=== PATIENT | female | born 1960 | race American Indian/Alaskan Native ===

== ENCOUNTER 2016-10-14 11:05 | Emergency (ER) | payer OTHER ==
[2016-10-14 11:22] VITALS: BP 123/82; PULSE 87; RESP 19; TEMP 98.5; O2SAT 100; BMI 28.8
--- NOTE | 2016-10-14 14:03 | RAD ---
PROCEDURE: Radiographs of the Lumbar Spine. HISTORY: back pain COMPARISON: Lumbar spine radiographs performed 03/14/16 FINDINGS: BONES: Alignment appears satisfactory. Diffuse osseous demineralization limits evaluation for acute fracture lines. No acute displaced fracture identified. Facet hypertrophy. DISC SPACES: Unremarkable. OTHER FINDINGS: Atherosclerotic calcifications of the abdominal aorta. IMPRESSION: Diffuse osseous demineralization limits evaluation for acute fracture lines. No acute displaced fracture identified. Facet hypertrophy.
--- NOTE | 2016-10-14 14:07 | ED PDOC ---
Arrival/HPI - General Historian: Patient - General Chief Complaint: Hip Pain Time Seen by Provider: 10/14/16 11:51 - History of Present Illness Narrative History of Present Illness (Text): 10/14/16 14:04 56yo female with PMHx of hypertension present with complaint of lower back pain and right hip pain s/p trauma 2days ago. states she slipped on a wet floor and fell forward. Pain started immediately, but she came to ED today for the persistent pain. States she took Ibuprofen 800mg yesterday with some relieve. Denies hitting head anywhere, LOC, nausea, vomiting, urinary/fecal incontinence , focal weakness, any other complaint. (Gema Bright) Past Medical History - Provider Review Nursing Documentation Reviewed: Yes - Infectious Disease Hx of Infectious Diseases: None - Tetanus Immunization Tetanus Immunization: Unknown - Cardiac Hx Congestive Heart Failure: Yes Hx Hypertension: Yes - Pulmonary Hx Respiratory Disorders: No - Neurological Hx Neurological Disorder: No Hx Vertigo: Yes - HEENT Hx HEENT Disorder: Yes Other/Comment: 2013 ear infection - Renal Hx Renal Disorder: No - Endocrine/Metabolic Hx Endocrine Disorders: Yes Hx Diabetes Mellitus Type 2: Yes - Hematological/Oncological Hx Blood Disorders: Yes Hx Anemia: Yes - Integumentary Hx Dermatological Disorder: No - Musculoskeletal/Rheumatological Hx Arthritis: Yes Hx Falls: No Hx Fractures: Yes (right great toe left 5th toe) - Gastrointestinal Hx Gastrointestinal Disorders: Yes Other/Comment: constipation. removal of abdl tumor - Genitourinary/Gynecological Hx Genitourinary Disorders: No - Psychiatric Hx Psychophysiologic Disorder: No Hx Depression: No Hx Substance Use: No - Surgical History Hx Hysterectomy: Yes (2007) Hx Orthopedic Surgery: Yes (right toe fracture repair) Other/Comment: myomectomy 2007 nipple removed right breast pilondal cystectomy - Anesthesia Hx Anesthesia: Yes Hx Anesthesia Reactions: No Hx Malignant Hyperthermia: No - Suicidal Assessment Feels Threatened In Home Enviroment: No Family/Social History - Physician Review Nursing Documentation Reviewed: Yes Family/Social History: Unknown Family HX Smoking Status: Former Smoker Hx Alcohol Use: No Hx Substance Use: No Allergies/Home Meds Allergies/Adverse Reactions: Allergies No Known Allergies Allergy (Verified 10/14/16 11:24) Home Medications: Home Meds Medication Instructions Recorded Confirmed Carvedilol [Coreg] 25 mg PO BID 01/01/16 10/14/16 Enalapril Maleate 10 mg PO DAILY 01/01/16 10/14/16 Furosemide [Lasix] 40 mg PO DAILY 01/01/16 10/14/16 metFORMIN [glucOPHAGE] 500 mg PO DAILY 01/01/16 10/14/16 Review of Systems - Physician Review All systems were reviewed & negative as marked: Yes - Review of Systems Constitutional: Normal Eyes: Normal ENT: Normal Respiratory: Normal Cardiovascular: Normal Gastrointestinal: Normal Genitourinary Female: Normal Musculoskeletal: Arthralgias (Right hip pain), Back Pain Skin: Normal Neurological: Normal Endocrine: Normal Hemo/Lymphatic: Normal Psychiatric: Normal Physical Exam Vital Signs Reviewed: Yes Temperature: Afebrile Blood Pressure: Normal Pulse: Regular Respiratory Rate: Normal Appearance: Positive for: Well-Appearing, Non-Toxic, Comfortable Pain Distress: None Mental Status: Positive for: Alert and Oriented X 3 - Systems Exam Head: Present: Atraumatic, Normocephalic Pupils: Present: PERRL Extroacular Muscles: Present: EOMI Conjunctiva: Present: Normal Mouth: Present: Moist Mucous Membranes Neck: Present: Normal Range of Motion Respiratory/Chest: Present: Clear to Auscultation, Good Air Exchange. No: Respiratory Distress, Accessory Muscle Use Cardiovascular: Present: Regular Rate and Rhythm, Normal S1, S2. No: Murmurs Abdomen: Present: Normal Bowel Sounds. No: Tenderness, Distention, Peritoneal Signs Back: Present: Paraspinal Tenderness (Right paralumbar tenderness), Pain with Leg Raise (Right leg). No: Midline Tenderness Upper Extremity: Present: Normal Inspection. No: Cyanosis, Edema Lower Extremity: Present: NORMAL PULSES, Normal ROM, Tenderness (Lateral right hip), Neurovascularly Intact. No: Edema, Swelling, Erythema, Deformity, Temperature Abnormalties Neurological: Present: GCS=15, CN II-XII Intact, Speech Normal Skin: Present: Warm, Dry, Normal Color. No: Rashes Psychiatric: Present: Alert, Oriented x 3, Normal Insight, Normal Concentration Vital Signs Temp Pulse Resp BP Pulse Ox 10/14/16 11:22 98.5 F 87 19 123/82 100 Medical Decision Making ED Course and Treatment: I was available for consultation during PA evaluation. The chart reviewed by me , and I agree with disposition. The documented history was done by the physician display manager. The documented physical exam was done by the physician display manager. The documented procedures were done by the physician display manager. (Chin He) 10/14/16 20:18 Right hip/LS xray - No acute finding Result was DW the pt. she was referred to her PMD/orthopedist. Analgesic was given. TRT ED for for any new or worsening symptoms. (Gema Bright) - RAD Interpretation Radiology Orders: 10/14/16 11:51 LS SPINE WITH OBL > 18 YRS OLD [RAD] Stat 10/14/16 11:52 Hip Right [HIP MIN 2V W/ PELVIS RT] [RAD] Stat - Medication Orders Current Medication Orders: Discontinued Medications Ketorolac Tromethamine (Toradol) 60 mg IM STAT STA Stop: 10/14/16 14:00 Last Admin: 10/14/16 14:47 Dose: 60 mg Disposition/Present on Arrival - Present on Arrival Any Indicators Present on Arrival: No History of DVT/PE: No History of Uncontrolled Diabetes: No Urinary Catheter: No History of Decub. Ulcer: No History Surgical Site Infection Following: None - Disposition Have Diagnosis and Disposition been Completed?: Yes Disposition Time: 14:10 Patient Plan: Discharge - Disposition Diagnosis: Back pain, Hip pain Disposition: HOME/ ROUTINE Condition: STABLE Discharge Instructions (ExitCare): Back Pain (ED), Hip Pain (ED) Additional Instructions: Follow up with your doctor/orthopedist Return to ED for any new or worsening symptoms Prescriptions: Cyclobenzaprine [Cyclobenzaprine HCl] 10 mg PO TID #10 tab Naproxen [Naprosyn] 500 mg PO BID #20 tab Referrals: Trenton Childs MD [Primary Care Provider] - Follow up with primary Helen Valenzuela MD [Staff Provider] - Follow up with primary
--- NOTE | 2016-10-14 14:12 | RAD ---
PROCEDURE: Right Hip and pelvis Radiographs. HISTORY: hi pain s/p trauma COMPARISON: None. FINDINGS: BONES: Normal. No fracture. JOINTS: Normal. SOFT TISSUES: Normal. OTHER FINDINGS: None. IMPRESSION: Negative study
== END 2016-10-14 14:49 | disposition home or self-care (01) ==
LOC: ED 11:05
DX: M54.5 Low back pain (principal); M25.551 Pain in right hip; I10 Essential (primary) hypertension
CPT/HCPCS: 72110; 73502; 96372; 99284; J1885

== ENCOUNTER 2017-06-16 23:57 | Emergency (ER) | payer OTHER ==
[2017-06-16 23:57] VITALS: BMI 28.8
--- NOTE | 2017-06-17 01:52 | ED PDOC ---
Arrival/HPI - General Chief Complaint: Lower Extremity Problem/Injury Time Seen by Provider: 06/17/17 00:28 Historian: Patient - History of Present Illness Narrative History of Present Illness (Text): 06/17/17 01:50 56yo female with PMHx of hypertension , diabetes and hypercholestremia, who present with complaint of left ankle pain x 3days. States pain became increasingly worse. Worse with weight bearing and just touching the area. States pain is localized to the medial aspect of her left ankle, but the pain radiates to her thigh. She denies trauma, redness, calf pain, LE edema, chest pain, any other complaint. She did not take any medication for the pain. 06/17/17 01:53 Past Medical History - Provider Review Nursing Documentation Reviewed: Yes - Infectious Disease Hx of Infectious Diseases: None - Tetanus Immunization Tetanus Immunization: Unknown - Cardiac Hx Congestive Heart Failure: Yes Hx Hypertension: Yes - Pulmonary Hx Respiratory Disorders: No - Neurological Hx Neurological Disorder: No Hx Vertigo: Yes - HEENT Hx HEENT Disorder: Yes Other/Comment: 2013 ear infection - Renal Hx Renal Disorder: No - Endocrine/Metabolic Hx Endocrine Disorders: Yes Hx Diabetes Mellitus Type 2: Yes - Hematological/Oncological Hx Blood Disorders: Yes Hx Anemia: Yes - Integumentary Hx Dermatological Disorder: No - Musculoskeletal/Rheumatological Hx Arthritis: Yes Hx Falls: No Hx Fractures: Yes (right great toe left 5th toe) - Gastrointestinal Hx Gastrointestinal Disorders: Yes Other/Comment: constipation. removal of abdl tumor - Genitourinary/Gynecological Hx Genitourinary Disorders: No - Psychiatric Hx Psychophysiologic Disorder: No Hx Depression: No Hx Substance Use: No - Surgical History Hx Hysterectomy: Yes (2007) Hx Orthopedic Surgery: Yes (right toe fracture repair) Other/Comment: myomectomy 2007 nipple removed right breast pilondal cystectomy - Anesthesia Hx Anesthesia: Yes Hx Anesthesia Reactions: No Hx Malignant Hyperthermia: No - Suicidal Assessment Feels Threatened In Home Enviroment: No Family/Social History - Physician Review Nursing Documentation Reviewed: Yes Family/Social History: Unknown Family HX Smoking Status: Former Smoker Hx Alcohol Use: No Hx Substance Use: No Allergies/Home Meds Allergies/Adverse Reactions: Allergies No Known Allergies Allergy (Verified 10/14/16 11:24) Home Medications: Home Meds Medication Instructions Recorded Confirmed Carvedilol [Coreg] 25 mg PO BID 01/01/16 06/17/17 Enalapril Maleate 10 mg PO DAILY 01/01/16 06/17/17 Furosemide [Lasix] 40 mg PO DAILY 01/01/16 06/17/17 metFORMIN [glucOPHAGE] 500 mg PO DAILY 01/01/16 06/17/17 Review of Systems - Physician Review All systems were reviewed & negative as marked: Yes - Review of Systems Constitutional: Normal Eyes: Normal ENT: Normal Respiratory: Normal Cardiovascular: Normal Gastrointestinal: Normal Genitourinary Female: Normal Musculoskeletal: Arthralgias (LEft ankle pain) Skin: Normal Neurological: Normal Endocrine: Normal Hemo/Lymphatic: Normal Psychiatric: Normal Physical Exam Vital Signs Reviewed: Yes Vital Signs Temp Pulse Resp BP Pulse Ox 06/17/17 02:26 98.0 F 82 17 142/97 H 98 06/17/17 02:14 98.0 F 82 17 142/97 H 98 Temperature: Afebrile Blood Pressure: Normal Pulse: Regular Respiratory Rate: Normal Appearance: Positive for: Well-Appearing, Non-Toxic, Comfortable Pain Distress: None Mental Status: Positive for: Alert and Oriented X 3 - Systems Exam Head: Present: Atraumatic, Normocephalic Pupils: Present: PERRL Extroacular Muscles: Present: EOMI Conjunctiva: Present: Normal Mouth: Present: Moist Mucous Membranes Neck: Present: Normal Range of Motion Respiratory/Chest: Present: Clear to Auscultation, Good Air Exchange. No: Respiratory Distress, Accessory Muscle Use Cardiovascular: Present: Regular Rate and Rhythm, Normal S1, S2. No: Murmurs Abdomen: Present: Normal Bowel Sounds. No: Tenderness, Distention, Peritoneal Signs Back: Present: Normal Inspection Upper Extremity: Present: Normal Inspection. No: Cyanosis, Edema Lower Extremity: Present: NORMAL PULSES, Normal ROM, Tenderness (Medial left ankle), Swelling (Mild swelling over the medial left ankle), Neurovascularly Intact. No: Edema, CALF TENDERNESS, Erythema, Temperature Abnormalties Neurological: Present: GCS=15, CN II-XII Intact, Speech Normal Skin: Present: Warm, Dry, Normal Color. No: Rashes Psychiatric: Present: Alert, Oriented x 3, Normal Insight, Normal Concentration Medical Decision Making ED Course and Treatment: 06/17/17 01:54 PT presented for stated history. Uric acid was 8.1. Pt's pain was controlled in ED with medication. Result was DW the pt. PT will be DC home with colchicine and percocet. Advised to f/u with her PMD. - Lab Interpretations Lab Results: Lab Results 06/17/17 00:45: Uric Acid 8.1 H - RAD Interpretation Radiology Orders: 06/17/17 00:50 ANKLE LEFT 3 VIEWS ROUTINE [RAD] Stat - Medication Orders Current Medication Orders: Discontinued Medications Dexamethasone (Decadron Inj) 10 mg IM STAT STA Stop: 06/17/17 01:41 Last Admin: 06/17/17 02:12 Dose: 10 mg IM Administration Charges Document 06/17/17 02:12 IT (Rec: 06/17/17 02:12 IT [id number]) Injection Site MAR Injection Site Right Deltoid Charges for Administration # of IM Administrations 1 Ketorolac Tromethamine (Toradol) 60 mg IM STAT STA Stop: 06/17/17 00:52 Last Admin: 06/17/17 01:31 Dose: 60 mg MAR Pain Assessment Document 06/17/17 01:31 IT (Rec: 06/17/17 01:31 IT [id number]) Pain Reassessment Is this a pain reassessment? No Sleep Is patient sleeping during reassessment? No Presence of Pain Presence of Pain Yes Pain Scale Used Pain Scale Used Numeric Location Left, Right or Bilateral Left Pain Location Body Site Ankle Foot IM Administration Charges Document 06/17/17 01:31 IT (Rec: 06/17/17 01:31 IT [id number]) Injection Site MAR Injection Site Left Deltoid Charges for Administration # of IM Administrations 1 Disposition/Present on Arrival - Present on Arrival Any Indicators Present on Arrival: No History of DVT/PE: No History of Uncontrolled Diabetes: No Urinary Catheter: No History of Decub. Ulcer: No History Surgical Site Infection Following: None - Disposition Have Diagnosis and Disposition been Completed?: Yes Diagnosis: Gout attack Disposition: HOME/ ROUTINE Disposition Time: 02:05 Patient Plan: Discharge Condition: STABLE Discharge Instructions (ExitCare): Gout (ED) Additional Instructions: Follow up with your Doctor Return to ED for any new or worsening symptoms Prescriptions: Colchicine 0.6 mg PO BID #10 cap oxyCODONE/Acetaminophen [Percocet 5/325 mg Tab] 1 ea PO Q6 #8 tab Referrals: [facility] at [facility] [place] [Outside] - Follow up with primary Forms: [employer] (Turkish)
[2017-06-17 02:24] VITALS: BP 142/97; PULSE 82; RESP 17; TEMP 98; O2SAT 98
--- NOTE | 2017-06-17 08:21 | RAD ---
PROCEDURE: Left Ankle Radiographs. HISTORY: ankle pain COMPARISON: None FINDINGS: BONES: Tiny ossific density adjacent to the tip of the medial malleolus may represent small avulsion injury of indeterminate age. No other fracture identified. JOINTS: Normal. No osteoarthritis. Ankle mortise maintained. Talar dome intact SOFT TISSUES: Medial soft tissue swelling. OTHER FINDINGS: None. IMPRESSION: Possible medial malleolar avulsion fracture. No additional abnormality.
== END 2017-06-17 02:37 | disposition home or self-care (01) ==
LOC: ED 23:57
DX: M10.9 Gout, unspecified (principal); I10 Essential (primary) hypertension; Z87.891 Personal history of nicotine dependence
CPT/HCPCS: 73610; 84550; 96372; 99283; J1100; J1885

== ENCOUNTER 2017-12-11 23:44 | Emergency (ER) | payer OTHER ==
[2017-12-12 00:06] VITALS: RESP 18; TEMP 97.9; BMI 28.3
--- NOTE | 2017-12-12 00:30 | ED PDOC ---
Arrival/HPI - General Chief Complaint: Trauma Time Seen by Provider: 12/12/17 00:29 Historian: Patient - History of Present Illness Narrative History of Present Illness (Text): 12/12/17 00:29 57 year old female, whose past medical history includes hypertension, pre- diabetes, hypercholestremia, and CHF, presents to the emergency department complaining of right big toe pain and ankle pain that radiates up to the lower leg s/p mechanical fall 4 days ago. Patient states she slipped due to a puddle of water indoors and fell down landing on her side. Patient is able to bear weight on her right leg. Patient reports body aches, but denies any chest pain , shortness of breath, nausea, vomiting, back pain, neck pain, hip pain, headache, dizziness, or any other complaints. Time/Duration: Other (4 days) Symptom Onset: Gradual Symptom Course: Unchanged Activities at Onset: Light Context: Slipped Past Medical History - Provider Review Nursing Documentation Reviewed: Yes - Infectious Disease Hx of Infectious Diseases: None - Tetanus Immunization Tetanus Immunization: Unknown - Cardiac Hx Cardiac Disorders: Yes Hx Congestive Heart Failure: Yes Hx Hypertension: Yes - Pulmonary Hx Respiratory Disorders: No - Neurological Hx Neurological Disorder: Yes Hx Vertigo: Yes - HEENT Hx HEENT Disorder: Yes Other/Comment: 2013 ear infection - Renal Hx Renal Disorder: No - Endocrine/Metabolic Hx Endocrine Disorders: Yes Hx Diabetes Mellitus Type 2: Yes - Hematological/Oncological Hx Blood Disorders: Yes Hx Anemia: Yes - Integumentary Hx Dermatological Disorder: No - Musculoskeletal/Rheumatological Hx Musculoskeletal Disorders: Yes Hx Arthritis: Yes Hx Falls: No Hx Fractures: Yes (right great toe left 5th toe) - Gastrointestinal Hx Gastrointestinal Disorders: Yes Other/Comment: constipation. removal of abdl tumor - Genitourinary/Gynecological Hx Genitourinary Disorders: No - Psychiatric Hx Psychophysiologic Disorder: No Hx Depression: No Hx Substance Use: No - Surgical History Hx Hysterectomy: Yes (2008) Hx Orthopedic Surgery: Yes (right toe fracture repair) Other/Comment: myomectomy 2007 nipple removed right breast pilondal cystectomy - Anesthesia Hx Anesthesia: Yes Hx Anesthesia Reactions: No Hx Malignant Hyperthermia: No - Suicidal Assessment Feels Threatened In Home Enviroment: No Family/Social History - Physician Review Nursing Documentation Reviewed: Yes Family/Social History: No Known Family HX Smoking Status: Former Smoker Hx Alcohol Use: No Hx Substance Use: No Allergies/Home Meds Allergies/Adverse Reactions: Allergies No Known Allergies Allergy (Verified 12/12/17 00:13) Home Medications: Home Meds Medication Instructions Recorded Confirmed Carvedilol [Coreg] 25 mg PO BID 01/01/16 12/12/17 Enalapril Maleate 40 mg PO DAILY 01/01/16 12/12/17 Furosemide [Lasix] 10 mg PO DAILY 01/01/16 12/12/17 metFORMIN [glucOPHAGE] 500 mg PO DAILY 01/01/16 12/12/17 Review of Systems - Physician Review All systems were reviewed & negative as marked: Yes - Review of Systems Respiratory: absent: SOB Cardiovascular: absent: Chest Pain Gastrointestinal: absent: Diarrhea, Nausea, Vomiting Musculoskeletal: Other ((+)Body aches (+) right big toe, ankle, and lower leg pain (-) hip pain). absent: Back Pain, Neck Pain Neurological: absent: Headache, Dizziness Physical Exam Vital Signs Reviewed: Yes Vital Signs Temp Pulse Resp BP Pulse Ox 12/12/17 03:00 69 18 135/75 99 12/12/17 00:04 97.9 F 74 18 176/87 H 98 Temperature: Afebrile Blood Pressure: Hypertensive Pulse: Regular Respiratory Rate: Normal Appearance: Positive for: Well-Appearing, Non-Toxic, Comfortable Pain Distress: None Mental Status: Positive for: Alert and Oriented X 3 - Systems Exam Head: Present: Atraumatic, Normocephalic Pupils: Present: PERRL Extroacular Muscles: Present: EOMI Conjunctiva: Present: Normal Mouth: Present: Moist Mucous Membranes Neck: Present: Normal Range of Motion Respiratory/Chest: Present: Clear to Auscultation, Good Air Exchange. No: Respiratory Distress, Accessory Muscle Use Cardiovascular: Present: Regular Rate and Rhythm, Normal S1, S2. No: Murmurs Abdomen: No: Tenderness, Distention, Peritoneal Signs Back: Present: Normal Inspection Upper Extremity: Present: Normal Inspection. No: Cyanosis, Edema Lower Extremity: Present: NORMAL PULSES, Tenderness ((+)tenderness to the right great toe overlining her first metatarsal, medial and lateral malleolus. Right tibia tenderness. ). No: Edema, Deformity, Other (no ecchymosis. no laceration) Neurological: Present: GCS=15, CN II-XII Intact, Speech Normal Skin: Present: Warm, Dry, Normal Color. No: Rashes Psychiatric: Present: Alert, Oriented x 3, Normal Insight, Normal Concentration Medical Decision Making ED Course and Treatment: 12/12/17 00:30 IMPRESSION: 57 year old female presents complaining of right great toe and ankle pain that radiates to the lower leg s/p mechanical fall 4 days ago. Plan: -- Ankle right 3 view x-ray -- Foot right 3 view x-ray -- Tibia Fibula right x-ray -- Reassess and disposition Prior Visits: Notes and results from previous visits were reviewed. Progress Notes: Ankle right 3 view x-ray Impression: As read by me, no fractures. Foot right 3 view x-ray Impression: As read by me, no fractures. Tibia Fibula right x-ray Impression: As read by me, no fractures. 12/12/17 03:03 On re-evaluation, patient feels better and is in no acute distress. I have discussed the results and plan with the patient, who expresses understanding. Patient in agreement with plan to be discharged home. Patient is stable for discharge. Patient was instructed to follow up with physician or return if symptoms worsen or new concerning symptoms arise. - RAD Interpretation Radiology Orders: 12/12/17 00:29 ANKLE RIGHT 3 VIEWS ROUTINE [RAD] Stat FOOT RIGHT 3 VIEWS ROUTINE [RAD] Stat TIBIA FIBULA RIGHT [RAD] Stat - Medication Orders Current Medication Orders: Discontinued Medications Ibuprofen (Motrin Tab) 600 mg PO STAT STA Stop: 12/12/17 02:54 Last Admin: 12/12/17 02:56 Dose: 600 mg - Scribe Statement The provider has reviewed the documentation as recorded by the Florence Bah Provider Scribe Attestation: All medical record entries made by the Scribluther were at my direction and personally dictated by me. I have reviewed the chart and agree that the record accurately reflects my personal performance of the history, physical exam, medical decision making, and the department course for this patient. I have also personally directed, reviewed, and agree with the discharge instructions and disposition. Disposition/Present on Arrival - Present on Arrival Any Indicators Present on Arrival: No History of DVT/PE: No History of Uncontrolled Diabetes: No Urinary Catheter: No History of Decub. Ulcer: No History Surgical Site Infection Following: None - Disposition Have Diagnosis and Disposition been Completed?: Yes Diagnosis: Strain of right ankle and foot Disposition: HOME/ ROUTINE Disposition Time: 03:00 Condition: GOOD Discharge Instructions (ExitCare): Foot Sprain (DC) Additional Instructions: MIKHAIL ELI, thank you for letting us take care of you today. Your provider was Lakisha Zayas MD and you were treated for fell / hurt her leg and arm. The emergency medical care you received today was directed at your acute symptoms. If you were prescribed any medication, please fill it and take as directed. It may take several days for your symptoms to resolve. Return to the Emergency Department if your symptoms worsen, do not improve, or if you have any other problems. Please contact your doctor or call one of the physicians/clinics you have been referred to that are listed on the Patient Visit Information form that is included in your discharge packet. Bring any paperwork you were given at discharge with you along with any medications you are taking to your follow up visit. Our treatment cannot replace ongoing medical care by a primary care provider outside of the emergency department. Thank you for allowing the [facility] team to be part of your care today. If you had an X-Ray or CT scan: A Radiologist will review the ED reading if any change in treatment is needed we will contact you. If you had a blood, urine, or wound culture: It will take several days for the results, if any change in treatment is needed we will contact you. If you had an STI test: It will take 48 hours for the results. Please call after 1 week if you have not heard back. Referrals: Mindi Jaicnto MD [Primary Care Provider] - Follow up with primary Forms: [employer] (Bhutanese)
[2017-12-12 03:02] VITALS: BP 135/75; PULSE 69; O2SAT 99
--- NOTE | 2017-12-12 09:04 | RAD ---
Date of service: 12/12/2017 PROCEDURE: Right Ankle Radiographs. HISTORY: fall COMPARISON: None FINDINGS: BONES: Normal. No fracture. JOINTS: Normal. No osteoarthritis. Ankle mortise maintained. Talar dome intact SOFT TISSUES: Normal. OTHER FINDINGS: None. IMPRESSION: Normal right ankle radiographs.
--- NOTE | 2017-12-12 09:04 | RAD ---
Date of service: 12/12/2017 PROCEDURE: Radiographs of the right tibia and fibula. HISTORY: fall COMPARISON: None available. TECHNIQUE: Frontal and lateral views obtained. FINDINGS: BONES: No fracture or destructive lesion. JOINT SPACES: Unremarkable. OTHER FINDINGS: None. IMPRESSION: Negative study
--- NOTE | 2017-12-12 09:05 | RAD ---
Date of service: 12/12/2017 PROCEDURE: Right Foot Radiographs. HISTORY: fall COMPARISON: None. FINDINGS: BONES: Normal. No fracture. JOINTS: Normal. SOFT TISSUES: Normal. OTHER FINDINGS: None. IMPRESSION: Normal right foot radiographs.
== END 2017-12-12 03:00 | disposition home or self-care (01) ==
LOC: ED 23:44
DX: S96.911A Strain of unspecified muscle and tendon at ankle and foot level, right foot, initial encounter (principal); W01.0XXA Fall on same level from slipping, tripping and stumbling without subsequent striking against object, initial encounter; Y92.9 Unspecified place or not applicable